=== PATIENT | female | born 2000 | race Two or more races ===

== ENCOUNTER 2023-11-13 01:19 | Emergency (ER) | payer MEDICAID, OTHER ==
[~2023-11-13] VITALS: Ht 152.4 cm; Wt 49.1 kg
[2023-11-13 02:19] LABS: BASOPHILS % (AUTO) 0.1 % (0.0-2.0); EOSINOPHILS % (AUTO) 0.1 % (1.0-6.0); HEMATOCRIT 44.2 % (36-46); HEMOGLOBIN 15.3 g/dL (12.0-16.0); LYMPHOCYTES # (AUTO) 1.6 K/uL (1.0-4.8); LYMPHOCYTES % (AUTO) 16.2 % (22.0-44.0); MEAN CORPUSCULAR HEMOGLOBIN 32.8 pg (26.0-34.0); MEAN CORPUSCULAR HGB CONC 34.7 G/dL (31.0-37.0); MEAN CORPUSCULAR VOLUME 94 fL (80-100); MONOCYTES # (AUTO) 0.6 K/uL (0.1-1.0); NEUTROPHILS # (AUTO) 7.6 K/uL (1.8-7.7); NEUTROPHILS % (AUTO) 77.6 % (40.0-70.0); PLATELET COUNT (AUTO) 226 K/uL (150-450); RED BLOOD CELL COUNT(AUTO) 4.68 MIL/uL (4.00-5.20); RED CELL DISTRIBUTION WIDTH 12.7 % (11.5-14.5); WHITE BLOOD COUNT (AUTO) 9.8 K/uL (4.5-11.0)
[2023-11-13 02:29] LABS: ANION GAP 12 mmol/L (8-16); CALCIUM, TOTAL 9.4 mg/dL (8.8-10.5); CARBON DIOXIDE 28 mmol/L (22-29); CHLORIDE 99 mmol/L (98-107); CREATININE 1.09 mg/dL (0.60-1.30); GLOMERULAR FILTR. RATE CALC > 60 mL/min (>60); GLUCOSE,RANDOM 103 mg/dL (70-110); POTASSIUM 3.3 mmol/L (3.5-5.1); SODIUM SERUM 138 mmol/L (136-145); UREA NITROGEN, BLOOD 12 mg/dL (7-18)
[2023-11-13] MEDS: POTASSIUM CHLORIDE 20 MEQ ER TABLET PO ONE (02:47)
[2023-11-13] MEDS: DiphenhydrAMINE HCL 25 MG CAPSULE PO ONE (02:55)
[2023-11-13] MEDS ORDERED: NAPH15DR75 OU (03:11)
[2023-11-13] MEDS ORDERED: TRIA15CR49 TP (03:11)
[2023-11-13] MEDS ORDERED: DIPH50CA37 PO (03:11)
[2023-11-13 03:27] VITALS: BP 127/72; PULSE 88; RESP 16; TEMP 97.9; O2SAT 98
== END 2023-11-13 03:58 | disposition home or self-care (01) ==
LOC: EMS 01:19
DX: N94.6 Dysmenorrhea, unspecified (principal); E87.6 Hypokalemia; H10.9 Unspecified conjunctivitis
CPT/HCPCS: 80048; 84703; 85025; 99283; 99284